=== PATIENT | male | born 1985 | race Caucasian/White ===

== ENCOUNTER 2018-01-14 21:42 | Emergency (ER) | payer OTHER ==
[~2018-01-14] VITALS: Ht 175.3 cm; Wt 63.5 kg
[~2018-01-14 21:42] MED LIST: BENTYL 20 MG TA20 M1 PO; CILOXAN5 ML OPHTHALMIC; CLEOCIN HCL300 MG PO; DOXYCYCLINE 10100 MG PO; KEFLEX250 MG PO; NOVOLIN R100 UNIT/1 IJ; PERCOCET 5-3251 EACH PO; PROMETHAZINE-D120 ML PO; VENTOLIN HFA INH8 GM IH; VICODIN 5-5001 EACH PO; ZOFRAN4 MG PO
[2018-01-14] MEDS ORDERED: HYDROCODONE-AP1 EAC6 PO (22:00)
[2018-01-14] MEDS ORDERED: KEFLEX500 M1 PO (22:00)
[2018-01-14 22:16] VITALS: BP 144/85
== END 2018-01-14 22:16 | disposition home or self-care (01) ==
LOC: M.ERS 21:42
DX: K04.7 Periapical abscess without sinus (principal); E11.9 Type 2 diabetes mellitus without complications

== ENCOUNTER 2018-11-23 14:35 | Emergency (ER) | payer OTHER ==
[~2018-11-23] VITALS: Ht 175.3 cm; Wt 63.5 kg
[~2018-11-23 14:35] MED LIST changes: +HYDROCODONE-AP1 EAC6 PO; +KEFLEX500 M1 PO
[2018-11-23] MEDS ORDERED: INSULIN REGULAR (14:44)
[2018-11-23 15:22] LABS: ABSOLUTE BASOPHILS 0.3 thou/uL (0.0-0.2); ABSOLUTE EOSINOPHILS 0.4 thou/uL (0.0-0.7); ABSOLUTE MONOCYTES 0.6 thou/uL (0.0-1.2); ABSOLUTE NEUTROPHILS 5.3 thou/uL (1.6-8.1); BASOPHILS 2.4 %; EOSINOPHILS 3.7 %; HEMATOCRIT 41.2 % (42.0-52.0); HEMOGLOBIN 14.1 gm/dL (14.0-18.0); LYMPHOCYTES 37.6 %; MCH 32.2 pg (26.0-34.0); MCHC 34.2 g/dL (28.0-37.0); MCV 94.3 fL (80.0-100.0); MPV 7.7 fl. (7.2-11.1); NUCLEATED RBCS 0 /100WBC; PLATELET COUNT* 326 thou/uL (150-400); POLYS 50.3 %; RBC 4.37 mil/uL (4.50-6.00); RDW-CV 12.8 % (10.5-14.5); WBC 10.6 thou/uL (4.0-11.0)
[2018-11-23 15:32] LABS: ANION GAP 6 mmol/L (7-16); BUN 14 mg/dL (7-18); CALCIUM 8.9 mg/dL (8.5-10.1); CHLORIDE 100 mmol/L (98-107); CO2 30 mmol/L (21-32); CREATININE 1.1 mg/dL (0.6-1.3); GLUCOSE 218 mg/dL (70-99); POTASSIUM 3.9 mmol/L (3.5-5.1); SODIUM 136 mmol/L (136-145)
[2018-11-23 15:39] LABS: ALBUMIN 3.2 g/dL (3.4-5.0); ALKALINE PHOSPHATASE 120 U/L (46-116); LIPASE 55 U/L (73-393); SGOT 12 U/L (15-37); SGPT 21 U/L (30-65); TOTAL BILIRUBIN 0.3 mg/dL (<0.1-1.0); TROPONIN-I LEVEL <0.06 ng/mL (<0.06)
[2018-11-23 16:21] LABS: URINE BILIRUBIN NEGATIVE (Negative); URINE BLOOD NEGATIVE (Negative); URINE CLARITY CLEAR; URINE COLOR YELLOW; URINE GLUCOSE-RANDOM 2+ (Negative); URINE KETONES NEGATIVE (Negative); URINE LEUKOCYTES-REFLEX NEGATIVE (Negative); URINE NITRITE-REFLEX NEGATIVE (Negative); URINE PROTEIN 1+ (Negative); URINE UROBILINOGEN 0.2 E.U./dl (0.2-1.0)
[2018-11-23] MEDS ORDERED: HYDROCODONE-AP1 EAC6 PO (17:05)
[2018-11-23 17:28] VITALS: BP 123/65
== END 2018-11-23 17:29 | disposition home or self-care (01) ==
LOC: M.ERS 14:35
PROVIDERS: Physician Assistant
DX: R16.0 Hepatomegaly, not elsewhere classified (principal); R19.7 Diarrhea, unspecified; E11.9 Type 2 diabetes mellitus without complications; F17.210 Nicotine dependence, cigarettes, uncomplicated; Z98.890 Other specified postprocedural states; Z79.4 Long term (current) use of insulin

== ENCOUNTER 2019-06-22 20:31 | Emergency (ER) | payer OTHER ==
[~2019-06-22] VITALS: Ht 175.3 cm; Wt 65.8 kg
[~2019-06-22 20:31] MED LIST changes: +INSULIN REGULAR
[2019-06-22] MEDS ORDERED: IBUPROFEN 800800 MG PO (21:09)
[2019-06-22] MEDS ORDERED: PENICILLIN V P500 MG PO (21:09)
[2019-06-22] MEDS ORDERED: ACETAMINOPHEN-1 EAC1 PO (21:09)
[2019-06-22 21:22] VITALS: BP 120/78
== END 2019-06-22 21:22 | disposition home or self-care (01) ==
LOC: M.ERS 20:31
DX: J32.9 Chronic sinusitis, unspecified (principal); K02.9 Dental caries, unspecified; R59.1 Generalized enlarged lymph nodes; E11.9 Type 2 diabetes mellitus without complications; Z98.890 Other specified postprocedural states; Z79.4 Long term (current) use of insulin

== ENCOUNTER 2020-05-09 09:04 | Emergency (ER) | payer OTHER ==
[~2020-05-09] VITALS: Ht 175.3 cm; Wt 54.9 kg
[~2020-05-09 09:04] MED LIST changes: +ACETAMINOPHEN-1 EAC1 PO; +IBUPROFEN 800800 MG PO; +PENICILLIN V P500 MG PO
[2020-05-09] MEDS ORDERED: IBUPROFEN 800800 MG PO (10:43)
[2020-05-09] MEDS ORDERED: HYDROCODON-ACE1 EA10 PO (10:43)
[2020-05-09] MEDS ORDERED: PENICILLIN V P500 MG PO (10:43)
[2020-05-09 11:06] VITALS: BP 142/88
== END 2020-05-09 11:07 | disposition home or self-care (01) ==
LOC: M.ERS 09:04
DX: K05.319 Chronic periodontitis, localized, unspecified severity (principal); K02.9 Dental caries, unspecified; K05.6 Periodontal disease, unspecified; E11.9 Type 2 diabetes mellitus without complications; Z90.49 Acquired absence of other specified parts of digestive tract

== ENCOUNTER 2021-06-16 10:12 | Emergency (ER) | payer OTHER ==
[~2021-06-16] VITALS: Ht 175.3 cm; Wt 59.0 kg
[~2021-06-16 10:12] MED LIST changes: +HYDROCODON-ACE1 EA10 PO
[2021-06-16] MEDS ORDERED: NOVOLIN R100 UNIT/1 SUBQ (10:21)
[2021-06-16 10:51] LABS: HEMATOCRIT 40.6 % (42.0-52.0); HEMOGLOBIN 13.4 gm/dL (14.0-18.0); MCH 31.4 pg (26.0-34.0); MCHC 33.1 g/dL (28.0-37.0); MPV 7.1 fl. (7.2-11.1); NUCLEATED RBCS 0 /100WBC; PLATELET COUNT* 374 thou/uL (150-400); RBC 4.28 mil/uL (4.50-6.00); RDW-CV 13.5 % (10.5-14.5); WBC 13.8 thou/uL (4.0-11.0)
[2021-06-16 11:01] LABS: CREATININE 1.4 mg/dL (0.6-1.3); POTASSIUM 4.3 mmol/L (3.5-5.1)
[2021-06-16 11:06] LABS: ALBUMIN 3.1 g/dL (3.4-5.0); TOTAL BILIRUBIN 0.3 mg/dL (<0.1-1.0); TOTAL PROTEIN 6.5 g/dL (6.4-8.2)
--- NOTE | 2021-06-16 11:20 | EKG ---
[place] [address] ELECTROCARDIOGRAM REPORT Name: BRANDIE MARTIN Room: [facility]#: [id number] Admission: 06/16/21 Attend Phys: Discharge: Date of : 89 Date of Service: 06/16/21 1019 Report #: [id number] THIS REPORT FOR: //name// [facility] ED Test Date: 2021-06-16 Test Time: 10:19:00 Pat Name: BRANDIE MARTIN Department: Room: Gender: [employer]: : 1985 Requested By: Joni Dallas Order Number: [id number] MD: Abelino Jensen Measurements Intervals [place] Rate: 60 P: 45 NV: 177 QRS: 84 QRSD: 92 T: 59 QT: 393 QTc: 393 Interpretive Statements Sinus rhythm Probable left atrial enlargement ST elevation suggests early repolarization No previous ECG available for comparison Electronically Signed On 06-16-2021 11:20:09 CDT by Abelino Jensen [email or web address] <ELECTRONICALLY SIGNED> By: Abelino Jensen MD, [facility] 06/16/21 1120 1019 1019 Abelino Jensen MD, [facility] /EPI
[2021-06-16 11:26] LABS: ABSOLUTE EOSINOPHILS 0.1 thou/uL (0.0-0.7); ABSOLUTE LYMPHOCYTES 2.3 thou/uL (0.8-5.3); ABSOLUTE MONOCYTES 0.8 thou/uL (0.0-1.2); ABSOLUTE NEUTROPHILS 10.5 thou/uL (1.6-8.1); PLATELET ESTIMATE ADEQUATE
[2021-06-16 11:44] LABS: URINE BILIRUBIN NEGATIVE (Negative); URINE BLOOD NEGATIVE (Negative); URINE CLARITY CLEAR; URINE COLOR YELLOW; URINE GLUCOSE-RANDOM 3+ (Negative); URINE KETONES NEGATIVE (Negative); URINE LEUKOCYTES-REFLEX NEGATIVE (Negative); URINE NITRITE-REFLEX NEGATIVE (Negative); URINE PROTEIN 2+ (Negative); URINE UROBILINOGEN 0.2 E.U./dl (0.2-1.0)
[2021-06-16 11:49] LABS: SQUAMOUS 0-3 Few /LPF (0-3); URINE WBC-REFLEX 0-5 Rare /HPF (0-5)
[2021-06-16 11:54] LABS: MUCUS 0-3 Light strn/LPF (None Seen); URINE RBC None Seen /HPF (0-2)
[2021-06-16 11:55] LABS: CRYSTALS None Seen /LPF (None Seen); HYALINE CASTS 4-10 Moderate /LPF (None Seen)
[2021-06-16 11:58] VITALS: BP 108/63
== END 2021-06-16 11:58 | disposition home or self-care (01) ==
LOC: M.ERS 10:12
PROVIDERS: Physician Assistant
DX: I95.1 Orthostatic hypotension (principal); E10.9 Type 1 diabetes mellitus without complications; Z90.89 Acquired absence of other organs; Z98.890 Other specified postprocedural states; Z79.4 Long term (current) use of insulin